=== PATIENT | male | born 1980 | race Hispanic/Latino ===

== ENCOUNTER 2020-06-06 15:06 | Emergency (ER) | payer SELFPAY ==
[~2020-06-06] VITALS: Ht 172.7 cm; Wt 71.8 kg
[2020-06-06] MEDS ORDERED: MORPHINE SULFATE INJ 4 MG/ML INJ 1ML ONE (16:13)
[2020-06-06] MEDS ORDERED: ONDANSETRON HCL INJ 2MG/ML 2ML 2 MG/ML VIAL ONE (16:13)
[2020-06-06] MEDS: MORPHINE SULFATE INJ 4 MG/ML INJ 1ML IV STA (16:40)
[2020-06-06] MEDS: ONDANSETRON HCL INJ 2MG/ML 2ML 2 MG/ML VIAL IV STA (16:40)
[2020-06-06] MEDS ORDERED: MORPHINE SULFATE INJ 4 MG/ML INJ 1ML IV PRN (18:00)
[2020-06-06] MEDS ORDERED: SODIUM CHLORIDE 0.9% 1000ML 1,000 ML IV SCH (18:00)
[2020-06-06] MEDS ORDERED: ONDANSETRON HCL INJ 2MG/ML 2ML 2 MG/ML VIAL IV PRN (18:00)
[2020-06-06] MEDS ORDERED: MORPHINE SULFATE INJ 2 MG/ML SYR IV PRN (18:00)
[2020-06-06] MEDS ORDERED: SODIUM CHLORIDE FLUSH 10 ML SYR INJ PRN (18:00)
== END 2020-06-06 18:18 | disposition home or self-care (01) ==
LOC: FSED 15:40
DX: K62.5 Hemorrhage of anus and rectum (principal); K63.9 Disease of intestine, unspecified; R53.1 Weakness
CPT/HCPCS: 74176; 80053; 81003; 82553; 84484; 85025; 99284; J2270; J2405

== ENCOUNTER 2020-06-06 20:56 | Inpatient (IN) | payer SELFPAY ==
[~2020-06-06] VITALS: Ht 172.7 cm; Wt 89.8 kg
[~2020-06-06 20:56] MED LIST: LIDOCAINE HCL 2% LOCAL INJ 5 ML SDV VIAL INJ ONE; PROPOFOL IV EMULSION 10 MG/ML 20 ML VIAL ONE
[2020-06-06] MEDS: SODIUM CHLORIDE 0.9% 1000ML 1,000 ML IV SCH (22:02)
[2020-06-06] MEDS: PANTOPRAZOLE 40 MG 10ML VIAL IV SCH (22:02)
[2020-06-06 23:42] LABS: HEMATOCRIT 39.1 % (38.2-49.6); HEMOGLOBIN 12.6 g/dL (14.0-18.0)
[2020-06-07] VITALS (10 sets, daily range): BP systolic 93–117; BP diastolic 59–78
[2020-06-07] MEDS: MORPHINE SULFATE INJ 4 MG/ML INJ 1ML IV PRN ×5 (01:54→22:02)
[2020-06-07 05:06] LABS: BASOPHILS # (AUTO) 0.1 (0.0-0.1); BASOPHILS % 0.6 % (0.0-1.0); EOSINOPHILS # (AUTO) 0.5 (0.0-0.4); EOSINOPHILS % 4.8 % (0.0-6.0); HEMATOCRIT 36.8 % (38.2-49.6); HEMOGLOBIN 12.3 g/dL (14.0-18.0); LYMPHOCYTES # (AUTO) 2.2 (1.0-3.2); LYMPHOCYTES % 19.6 % (18.0-39.1); MEAN CORPUSCULAR HEMOGLOBIN 29.4 pg (28-32); MEAN CORPUSCULAR HGB CONC 33.4 g/dL (31-35); MONOCYTES # (AUTO) 1.1 (0.2-0.8); NEUTROPHILS # (AUTO) 7.2 (2.1-6.9); NEUTROPHILS % 64.6 % (38.7-80.0); PLATELET COUNT 385 x10e3/uL (140-360); RED BLOOD COUNT 4.18 x10e6/uL (4.3-5.7)
[2020-06-07 05:26] LABS: PROTHROMBIN TIME 13.8 seconds (11.9-14.5)
[2020-06-07 05:27] LABS: PARTIAL THROMBOPLASTIN TIME 42.1 seconds (23.8-35.5)
[2020-06-07] MEDS: SODIUM CHLORIDE 0.9% 1000ML 1,000 ML IV SCH ×3 (05:31→20:37)
[2020-06-07 05:40] LABS: % IRON SATURATION 9 % (15-50); ALANINE AMINOTRANSFERASE 18 IU/L (0-55); ALBUMIN 2.8 g/dL (3.5-5.0); ALBUMIN/GLOBULIN RATIO 0.9 (0.8-2.0); ALKALINE PHOSPHATASE 64 IU/L (40-150); ANION GAP 10.9 mmol/L (8-16); BILIRUBIN,DIRECT 0.1 mg/dL (0.0-0.5); BLOOD UREA NITROGEN 8 mg/dL (7-26); BUN/CREATININE RATIO 11 (6-25); CALCIUM 7.6 mg/dL (8.4-10.2); CARBON DIOXIDE 26 mmol/L (22-29); CHLORIDE 106 mmol/L (98-107); CREATININE, SERUM 0.76 mg/dL (0.72-1.25); EST GLOMERULAR FILTRATION RATE > 60 ML/MIN (60-); GLUCOSE 101 mg/dL (74-118); IRON 27 ug/dL (65-175); LIPASE 58 U/L (8-78); MAGNESIUM 1.9 MG/DL (1.3-2.1); POTASSIUM 3.9 mmol/L (3.5-5.1); SODIUM 139 mmol/L (136-145); TOTAL IRON BINDING CAPACITY 314 ug/dL (261-478); TRANSFERRIN 224 mg/dL (174-364)
[2020-06-07 06:03] LABS: FERRITIN 18.17 ng/mL (21.81-274.66)
[2020-06-07] MEDS: PANTOPRAZOLE 40 MG 10ML VIAL IV SCH (07:54)
[2020-06-07] MEDS: ONDANSETRON HCL INJ 2MG/ML 2ML 2 MG/ML VIAL IV PRN ×4 (07:55→22:02)
[2020-06-07 11:43] LABS: HEMATOCRIT 35.5 % (38.2-49.6); HEMOGLOBIN 11.5 g/dL (14.0-18.0)
[2020-06-07] MEDS: BISACODYL 5 MG TAB EC PO SCH ×3 (13:29→15:48)
[2020-06-07 18:04] LABS: HEMATOCRIT 39.5 % (38.2-49.6); HEMOGLOBIN 12.9 g/dL (14.0-18.0)
[2020-06-07] MEDS: CITRATE OF MAGNESIA 300ML BOTTLE PO SCH ×2 (20:28→23:08)
[2020-06-08 01:28] VITALS: BP 114/69
[2020-06-08] MEDS: MORPHINE SULFATE INJ 4 MG/ML INJ 1ML IV PRN ×5 (04:34→21:45)
[2020-06-08] MEDS: SODIUM CHLORIDE 0.9% 1000ML 1,000 ML IV SCH ×3 (04:34→22:49)
[2020-06-08] MEDS: ONDANSETRON HCL INJ 2MG/ML 2ML 2 MG/ML VIAL IV PRN ×2 (04:34→09:10)
[2020-06-08 06:37] LABS: HEMATOCRIT 38.3 % (38.2-49.6); HEMOGLOBIN 12.2 g/dL (14.0-18.0)
[2020-06-08 08:26] VITALS: BP 125/61
[2020-06-08] MEDS: IRON SUCROSE 100 MG in SODIUM CHLORIDE 0.9% 100 ML 100 ML IV SCH (09:51)
[2020-06-08] MEDS: PANTOPRAZOLE 40 MG 10ML VIAL IV SCH (09:51)
[2020-06-08 12:38] VITALS: BP 109/62
[2020-06-08 13:36] LABS: HEMATOCRIT 38.5 % (38.2-49.6); HEMOGLOBIN 12.6 g/dL (14.0-18.0)
[2020-06-08] MEDS ORDERED: FENTANYL CITRATE/PF 100MCG/2 ML INJ ONE (13:39)
[2020-06-08] MEDS ORDERED: MIDAZOLAM HCL 2 MG/2 ML VIAL ONE (13:39)
[2020-06-08 15:58] LABS: WBC,FECAL (FECAL LACTOFERRIN) POSITIVE (NEGATIVE)
[2020-06-08 16:12] VITALS: BP 155/70
[2020-06-08] MEDS: MESALAMINE 400 MG CAP PO SCH (16:42)
[2020-06-08 18:43] LABS: HEMATOCRIT 37.6 % (38.2-49.6); HEMOGLOBIN 12.3 g/dL (14.0-18.0)
[2020-06-08 20:00] VITALS: BP_SYST 120; BP_SYST 94; BP_DIAS 68; BP_DIAS 69
[2020-06-08] MEDS ORDERED: MESALAMINE 1,000 MG SUPP RC SCH (21:00)
[2020-06-08 23:16] VITALS: BP 120/68
[2020-06-09] VITALS (7 sets, daily range): BP systolic 88–112; BP diastolic 42–76
[2020-06-09] MEDS: MESALAMINE 400 MG CAP PO SCH ×3 (01:02→12:00)
[2020-06-09] MEDS: MORPHINE SULFATE INJ 4 MG/ML INJ 1ML IV PRN (04:46)
[2020-06-09 05:03] LABS: HEMATOCRIT 36.2 % (38.2-49.6); HEMOGLOBIN 11.5 g/dL (14.0-18.0)
[2020-06-09] MEDS: SODIUM CHLORIDE 0.9% 1000ML 1,000 ML IV SCH (05:38)
[2020-06-09] MEDS: PANTOPRAZOLE 40 MG 10ML VIAL IV SCH (09:00)
[2020-06-09] MEDS: IRON SUCROSE 100 MG in SODIUM CHLORIDE 0.9% 100 ML 100 ML IV SCH (09:00)
[2020-06-09 15:15] LABS: C DIFFICILE TOXIN A&B AMP PROB NEGATIVE (NEGATIVE)
== END 2020-06-09 14:34 | disposition home or self-care (01) | DRG 394 ==
LOC: ER 21:11 → ERHOLD 21:38 → MED/SURG2 23:59
PROC: 0DBH8ZX Excision of Cecum, Via Natural or Artificial Opening Endoscopic, Diagnostic (ICD-10-PCS; principal; 2020-06-09)
PROC: 0DBG8ZX Excision of Left Large Intestine, Via Natural or Artificial Opening Endoscopic, Diagnostic (ICD-10-PCS; 2020-06-09)
PROC: 0DBC8ZX Excision of Ileocecal Valve, Via Natural or Artificial Opening Endoscopic, Diagnostic (ICD-10-PCS; 2020-06-09)
PROC: 0DBM8ZX Excision of Descending Colon, Via Natural or Artificial Opening Endoscopic, Diagnostic (ICD-10-PCS; 2020-06-09)
DX: D12.4 Benign neoplasm of descending colon (principal); K51.211 Ulcerative (chronic) proctitis with rectal bleeding; D64.9 Anemia, unspecified; K64.8 Other hemorrhoids; Z20.822 Contact with and (suspected) exposure to COVID-19
CPT/HCPCS: 36415; 45384; 80053; 80076; 82728; 83540; 83630; 83690; 83735; 83993; 84134; 84466; 85014; 85018; 85025; 85610; 85730; 86140; 86256; 86671; 86850; 86900; 87045; 87177; 87328; 87493; 88305; 88342; 99284; J1756; J2001; J2250; J2270; J2405; J3010; J7030; U0002